=== PATIENT | female | born 1985 | race African-American/Black ===

== ENCOUNTER 2017-11-11 06:07 | Emergency (ER) | payer SELFPAY ==
[2017-11-11] MEDS ORDERED: Dexamethasone 4 MG TAB ONE (06:37)
[2017-11-11] MEDS ORDERED: Ketorolac Tromethamine 60 MG/2 ML VIAL ONE (06:37)
[2017-11-11] MEDS ORDERED: Dexamethasone 10 MG/ML VIAL ONE ×2 (06:37→06:38)
== END 2017-11-11 07:37 | disposition home or self-care (01) ==
LOC: ERS 06:07
DX: J02.9 Acute pharyngitis, unspecified (principal); Z71.6 Tobacco abuse counseling; F17.210 Nicotine dependence, cigarettes, uncomplicated
CPT/HCPCS: 87081; 87430; 96372; 99406; J1100; J1885; J8540

== ENCOUNTER 2018-05-29 08:18 | Emergency (ER) | payer SELFPAY ==
[2018-05-29] MEDS ORDERED: Ketorolac Tromethamine 60 MG/2 ML VIAL ONE (10:03)
--- NOTE | 2018-05-29 10:28 | RAD ---
LEFT ANKLE 3 VIEWS: Date: 05/29/18 HISTORY: Pain, swelling, fall, injury. FINDINGS/IMPRESSION: The ankle mortise is maintained. No fracture or dislocation is seen. POS: [facility]
== END 2018-05-29 10:20 | disposition home or self-care (01) ==
LOC: ERS 08:18
DX: S96.912A Strain of unspecified muscle and tendon at ankle and foot level, left foot, initial encounter (principal); F17.210 Nicotine dependence, cigarettes, uncomplicated; W18.30XA Fall on same level, unspecified, initial encounter
CPT/HCPCS: 96372; J1885

== ENCOUNTER 2018-11-13 07:25 | Emergency (ER) | payer OTHER, SELFPAY ==
[2018-11-13] MEDS ORDERED: Proparacaine 0.5% Opth 15 ML BOT ONE (08:43)
[2018-11-13] MEDS ORDERED: Fluorescein Opthalmic Strip ONE (08:43)
== END 2018-11-13 09:21 | disposition home or self-care (01) ==
LOC: ERS 07:25
DX: S05.01XA Injury of conjunctiva and corneal abrasion without foreign body, right eye, initial encounter (principal); H10.9 Unspecified conjunctivitis; F17.210 Nicotine dependence, cigarettes, uncomplicated; X58.XXXA Exposure to other specified factors, initial encounter; Y92.69 Other specified industrial and construction area as the place of occurrence of the external cause
CPT/HCPCS: 99282

== ENCOUNTER 2019-11-21 01:33 | Emergency (ER) | payer OTHER ==
[2019-11-21] MEDS ORDERED: Fluorescein Opthalmic Strip ONE (01:58)
[2019-11-21] MEDS ORDERED: Proparacaine 0.5% Opth 15 ML BOT ONE (01:58)
== END 2019-11-21 02:36 | disposition home or self-care (01) ==
LOC: ERS 01:33
DX: H92.01 Otalgia, right ear (principal); Z87.891 Personal history of nicotine dependence
CPT/HCPCS: 99283